=== PATIENT | male | born 1965 | race Hispanic/Latino ===

== ENCOUNTER 2017-07-17 15:41 | Inpatient (IN) | payer OTHER ==
[~2017-07-17] VITALS: Ht 188 cm; Wt 59.0 kg
[2017-07-17 16:51] LABS: BASOPHILS % (AUTO) 0.3 % (0.0-5.0); EOSINOPHILS % (AUTO) 0.4 % (0.0-8.0); LYMPHOCYTES % (AUTO) 17.8 % (21.0-51.0); MEAN CORPUSCULAR HEMOGLOBIN 37.4 pg (27.0-33.0); MEAN CORPUSCULAR HGB CONC 36.6 g/dL (32.0-36.0); MEAN CORPUSCULAR VOLUME 102.2 fL (79-99); MONOCYTES % (AUTO) 9.6 % (3.0-13.0); NEUTROPHILS % (AUTO) 71.9 % (40.0-77.0); PLATELET COUNT (AUTO) 105 K/uL (130-400); RED BLOOD CELL COUNT(AUTO) 3.33 MIL/uL (4.50-6.20); RED CELL DISTRIBUTION WIDTH 13.5 % (11.0-15.5); WHITE BLOOD COUNT (AUTO) 6.2 K/uL (4.8-10.8)
[2017-07-17 17:06] LABS: ALBUMIN 3.9 g/dL (3.5-5.0); BILIRUBIN,TOTAL 0.9 mg/dL (0.2-1.0); CREATININE 0.7 mg/dL (0.5-1.5); TOTAL PROTEIN, SERUM 7.6 g/dL (6.0-8.3)
[2017-07-17 17:07] LABS: POTASSIUM 2.7 mmol/L (3.5-5.1)
[2017-07-17] MEDS ORDERED: POTASSIUM BICARB/CIT AC 25 MEQ TABLET.EFF ONE ×2 (17:09→17:41)
[2017-07-17 20:28] LABS: CREATININE 0.7 mg/dL (0.5-1.5); POTASSIUM 3.9 mmol/L (3.5-5.1)
[2017-07-17] MEDS ORDERED: FERR325T21 PO (21:47)
[2017-07-17] MEDS ORDERED: POTA-79 PO (21:47)
[2017-07-17] MEDS ORDERED: MELA1TAB28 PO (21:47)
[2017-07-17] MEDS ORDERED: IBUP-2077 PO (21:48)
[2017-07-17] MEDS ORDERED: VITA1CAP85 PO (21:48)
[2017-07-17] MEDS ORDERED: ONDANSETRON HCL MDV 20ML 2 MG/ML VIAL IVP PRN (22:00)
[2017-07-17] MEDS ORDERED: ACETAMINOPHEN 325 MG TAB PO PRN (22:00)
[2017-07-17 22:09] VITALS: BP 109/70
[2017-07-17] MEDS: SODIUM CHLORIDE 0.9% 1000ML 1,000 ML IV SCH (22:17)
[2017-07-17] MEDS: MORPHINE SULFATE 2 MG/ML 1ML SYG IVP PRN (22:18)
[2017-07-17 23:28] VITALS: BP 101/70
[2017-07-18 03:00] VITALS: BP 119/81
[2017-07-18] MEDS: MORPHINE SULFATE 2 MG/ML 1ML SYG IVP PRN ×2 (03:37→21:51)
[2017-07-18] MEDS ORDERED: IBUPROFEN 800 MG TAB PO PRN (08:00)
[2017-07-18 08:28] VITALS: BP 110/72
[2017-07-18] MEDS ORDERED: MORPHINE SULFATE 4 MG/1ML SYG ONE (09:47)
[2017-07-18] MEDS: VITAMIN B COMPLEX 1 CAPSULE PO SCH (09:52)
[2017-07-18] MEDS: POTASSIUM CHLORIDE 20 MEQ ERTAB PO SCH (09:53)
[2017-07-18] MEDS: FERROUS GLUCONATE 325 MG TABLET PO SCH ×2 (09:53→21:49)
[2017-07-18] MEDS: SODIUM CHLORIDE 0.9% 1000ML 1,000 ML IV SCH (10:03)
[2017-07-18 11:28] VITALS: BP 98/58
[2017-07-18 16:29] VITALS: BP 103/61
[2017-07-18 19:30] VITALS: BP 106/80
[2017-07-18] MEDS ORDERED: **HM** MELATONIN 3MG PO SCH (21:00)
[2017-07-18 23:00] VITALS: BP 116/74
[2017-07-19] MEDS: MORPHINE SULFATE 2 MG/ML 1ML SYG IVP PRN (03:06)
[2017-07-19 03:30] VITALS: BP 110/66
[2017-07-19 05:50] LABS: HEMATOCRIT 25.9 % (42-54); MEAN CORPUSCULAR HEMOGLOBIN 38.1 pg (27.0-33.0); MEAN CORPUSCULAR HGB CONC 36.2 g/dL (32.0-36.0); MEAN CORPUSCULAR VOLUME 105.1 fL (79-99); PLATELET COUNT (AUTO) 127 K/uL (130-400); RED BLOOD CELL COUNT(AUTO) 2.46 MIL/uL (4.50-6.20); RED CELL DISTRIBUTION WIDTH 13.7 % (11.0-15.5); WHITE BLOOD COUNT (AUTO) 4.1 K/uL (4.8-10.8)
[2017-07-19 06:02] LABS: CREATININE 0.6 mg/dL (0.5-1.5); POTASSIUM 3.8 mmol/L (3.5-5.1); THYROID STIMULATING HORMONE 1.78 uIU/mL (0.36-3.74)
[2017-07-19 07:59] LABS: BASOPHILS % (MANUAL) 2 % (0-2); EOSINOPHILS % (MANUAL) 1 % (1-6); LYMPHOCYTES % (MANUAL) 30 % (22-44); MAN.DIFF COMMENT-IMPRESSION MANUAL DIFFERENTIAL; MONOCYTES % (MANUAL) 10 % (2-9); SEGMENTED NEUTROPHILS % 57 % (40-70)
[2017-07-19 08:00] LABS: PLATELET MORPHOLOGY COMMENT SLIGHTLY DECREASED
[2017-07-19 08:31] VITALS: BP 125/77
[2017-07-19] MEDS: POTASSIUM CHLORIDE 20 MEQ ERTAB PO SCH (08:48)
[2017-07-19] MEDS: FERROUS GLUCONATE 325 MG TABLET PO SCH (08:48)
[2017-07-19] MEDS: VITAMIN B COMPLEX 1 CAPSULE PO SCH (08:48)
[2017-07-19 11:24] VITALS: BP 97/52
== END 2017-07-19 16:19 | disposition home or self-care (01) | DRG 536 ==
LOC: EDH 15:41 → EDHIP 17:05 → 4AH 21:57
PROVIDERS: ADMIT Family Medicine; ATTEND Family Medicine
DX: S72.141A Displaced intertrochanteric fracture of right femur, initial encounter for closed fracture (principal); E44.0 Moderate protein-calorie malnutrition; E87.1 Hypo-osmolality and hyponatremia; D64.9 Anemia, unspecified; E86.0 Dehydration; S92.002A Unspecified fracture of left calcaneus, initial encounter for closed fracture; Z68.1 Body mass index [BMI] 19.9 or less, adult; W17.89XA Other fall from one level to another, initial encounter; E87.6 Hypokalemia; F10.10 Alcohol abuse, uncomplicated; Y93.39 Activity, other involving climbing, rappelling and jumping off; Y92.098 Other place in other non-institutional residence as the place of occurrence of the external cause; Y99.8 Other external cause status; Z82.3 Family history of stroke
CPT/HCPCS: 36415; 71045; 73502; 73552; 80048; 80053; 82533; 83930; 83935; 84443; 85025; 93005; J2270; J7030